=== PATIENT | female | born 1960 | race Two or more races ===

== ENCOUNTER 2023-01-01 10:59 | Outpatient (CLI) | payer OTHER ==
[~2023-01-01 10:59] MED LIST: AVALIDE 150-12.1 TA1; AVAPRO75 MG PO; KETO10TA2 PO; LIPITOR20 MG PO; TENCON TABLET1 TAB PO
== END 2023-01-01 11:13 | disposition home or self-care (01) ==
LOC: SONOGRAMA 10:59
PROVIDERS: ATTEND Obstetrics & Gynecology
DX: R10.2 Pelvic and perineal pain (principal)

== ENCOUNTER 2025-05-04 09:17 | Outpatient (CLI) | payer OTHER | END 2025-05-04 09:22 | disposition home or self-care (01) | LOC: SONOGRAMA 09:17 | DX: E04.1 Nontoxic single thyroid nodule (principal) ==

== ENCOUNTER 2025-05-22 08:42 | Outpatient (CLI) | payer OTHER | END 2025-05-22 08:44 | disposition home or self-care (01) | LOC: SONOGRAMA 08:42 | PROVIDERS: ATTEND Pathology Anatomic Pathology | DX: D34 Benign neoplasm of thyroid gland (principal); E07.89 Other specified disorders of thyroid; E04.2 Nontoxic multinodular goiter ==